=== PATIENT | male | born 1985 | race Caucasian/White ===

== ENCOUNTER 2020-06-17 18:42 | Emergency (ER) | payer BC, OTHER ==
[2020-06-17] MEDS ORDERED: Penicillin V Potassium 500 MG Tab PO STA (19:12)
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
== END 2020-06-17 19:25 | disposition home or self-care (01) ==
LOC: JD.ED 18:42
DX: K04.7 Periapical abscess without sinus (principal); K02.9 Dental caries, unspecified; Z87.891 Personal history of nicotine dependence
CPT/HCPCS: 99282; A9270; 99283